=== PATIENT | female | born 1945 | race Caucasian/White ===

== ENCOUNTER 2021-05-03 14:42 | Outpatient (CLI) | payer MEDICARE ==
[2021-05-03 15:45] LABS: #Basophils 0.1 thou/uL (0.0-0.2); #Eosinphils 0.2 thou/uL (0.0-0.7); #Lymphocytes 2.1 thou/uL (1.20-3.40); #Monocytes 0.7 thou/uL (0.11-0.59); #Neutrophils 7.4 thou/uL (1.40-6.50); %Basophils 0.5 % (0.0-1.0); %Eosinophils 2.3 % (0.0-10.0); %Lymphocytes 19.6 % (21.0-51.0); %Monocytes 6.8 % (0.0-10.0); %Neutrophils 70.8 % (42.0-75.0); Hemoglobin 12.7 g/dL (12.0-16.0); Mean Corpuscular HGB CONC 31.6 g/dL (32.0-36.0); Mean Corpuscular Hemoglobin 27.1 pg (27.0-31.0); Mean Corpuscular Volume 85.9 fL (78.0-98.0); Mean Platelet Volume 10.1 fL (7.4-10.4); Platelet Count 233 thou/uL (130-400); RBC Distribution Width 13.4 % (11.5-14.5); Red Blood Cell (RBC) Count 4.67 mill/uL (4.20-5.40); White Blood Cell (WBC) Count 10.5 thou/uL (4.8-10.8)
[2021-05-03 16:57] LABS: ALT (SGPT) 18 U/L (8-55); AST (SGOT) 20 U/L (5-34); Albumin 3.8 g/dL (3.4-4.8); Alkaline Phosphatase 59 U/L (40-110); Anion Gap 17 mmol/L (10-20); BUN (Urea Nitrogen) 17 mg/dL (9.8-20.1); Bilirubin, Total 0.2 mg/dL (0.2-1.2); CRP (Inflammatory) 0.84 mg/dL (= or < 0.5); Calc. Creatinine Clearance 0 mL/min (70-130); Calcium 9.4 mg/dL (7.8-10.44); Carbon Dioxide 27 mmol/L (23-31); Chloride 100 mmol/L (98-107); Globulin 2.5 g/dL (2.4-3.5); Glucose 135 mg/dL (83-110); Potassium 4.3 mmol/L (3.5-5.1); Protein, Total 6.3 g/dL (5.8-8.1); Sodium 140 mmol/L (136-145)
== END 2021-05-03 14:43 | disposition home or self-care (01) ==
LOC: MADLABSP 14:42
PROVIDERS: ATTEND Family Medicine
DX: I10 Essential (primary) hypertension (principal)
CPT/HCPCS: 80053; 85025; 85652; 86140

== ENCOUNTER 2021-05-11 03:50 | Outpatient (CLI) | payer MEDICARE ==
[2021-05-11 07:44] LABS: #Basophils 0.1 thou/uL (0.0-0.2); #Eosinphils 0.3 thou/uL (0.0-0.7); #Lymphocytes 1.8 thou/uL (1.20-3.40); #Monocytes 0.4 thou/uL (0.11-0.59); #Neutrophils 8.5 thou/uL (1.40-6.50); %Basophils 0.7 % (0.0-1.0); %Eosinophils 2.4 % (0.0-10.0); %Lymphocytes 15.9 % (21.0-51.0); %Monocytes 3.8 % (0.0-10.0); %Neutrophils 77.1 % (42.0-75.0); Mean Corpuscular HGB CONC 31.1 g/dL (32.0-36.0); Mean Corpuscular Hemoglobin 26.7 pg (27.0-31.0); Mean Platelet Volume 10.9 fL (7.4-10.4); Platelet Count 233 thou/uL (130-400); RBC Distribution Width 13.2 % (11.5-14.5); Red Blood Cell (RBC) Count 4.87 mill/uL (4.20-5.40)
[2021-05-11 08:03] LABS: Anion Gap 21 mmol/L (10-20); BUN (Urea Nitrogen) 17 mg/dL (9.8-20.1); Calc. Creatinine Clearance 0 mL/min (70-130); Carbon Dioxide 22 mmol/L (23-31); Chloride 99 mmol/L (98-107); Potassium 5.2 mmol/L (3.5-5.1); Sodium 137 mmol/L (136-145)
[2021-05-11 08:04] LABS: ALT (SGPT) 18 U/L (8-55); AST (SGOT) 19 U/L (5-34); Albumin 3.9 g/dL (3.4-4.8); Alkaline Phosphatase 77 U/L (40-110); Bilirubin, Total 0.4 mg/dL (0.2-1.2); Calcium 9.1 mg/dL (7.8-10.44); Globulin 2.7 g/dL (2.4-3.5); Glucose 230 mg/dL (83-110); Protein, Total 6.6 g/dL (5.8-8.1)
== END 2021-05-11 03:51 | disposition home or self-care (01) ==
LOC: MADERS 03:50
PROVIDERS: ATTEND Family Medicine
DX: T81.32XD Disruption of internal operation (surgical) wound, not elsewhere classified, subsequent encounter (principal); T81.49XD Infection following a procedure, other surgical site, subsequent encounter; C51.9 Malignant neoplasm of vulva, unspecified
CPT/HCPCS: 80053; 85025; 85652; 86140

== ENCOUNTER 2021-05-19 15:20 | Outpatient (CLI) | payer MEDICARE ==
[2021-05-19 15:55] LABS: #Eosinphils 0.2 thou/uL (0.0-0.7); #Lymphocytes 1.6 thou/uL (1.20-3.40); #Monocytes 0.4 thou/uL (0.11-0.59); #Neutrophils 8.4 thou/uL (1.40-6.50); %Basophils 0.3 % (0.0-1.0); %Lymphocytes 15.5 % (21.0-51.0); %Monocytes 3.3 % (0.0-10.0); %Neutrophils 78.9 % (42.0-75.0); Hemoglobin 13.2 g/dL (12.0-16.0); Mean Corpuscular HGB CONC 32.1 g/dL (32.0-36.0); Mean Corpuscular Hemoglobin 27.1 pg (27.0-31.0); Mean Corpuscular Volume 84.4 fL (78.0-98.0); Mean Platelet Volume 10.1 fL (7.4-10.4); Platelet Count 261 thou/uL (130-400); RBC Distribution Width 12.8 % (11.5-14.5); Red Blood Cell (RBC) Count 4.85 mill/uL (4.20-5.40); White Blood Cell (WBC) Count 10.6 thou/uL (4.8-10.8)
[2021-05-19 16:06] LABS: ALT (SGPT) 19 U/L (8-55); AST (SGOT) 19 U/L (5-34); Albumin 3.9 g/dL (3.4-4.8); Alkaline Phosphatase 79 U/L (40-110); Anion Gap 20 mmol/L (10-20); BUN (Urea Nitrogen) 18 mg/dL (9.8-20.1); Bilirubin, Total 0.4 mg/dL (0.2-1.2); CRP (Inflammatory) 0.87 mg/dL (= or < 0.5); Calc. Creatinine Clearance 0 mL/min (70-130); Calcium 8.9 mg/dL (7.8-10.44); Carbon Dioxide 22 mmol/L (23-31); Chloride 101 mmol/L (98-107); Globulin 2.7 g/dL (2.4-3.5); Glucose 184 mg/dL (83-110); Potassium 4.8 mmol/L (3.5-5.1); Protein, Total 6.6 g/dL (5.8-8.1); Sodium 138 mmol/L (136-145)
[2021-05-19 22:47] LABS: Follow-up Chemistry Comp? YES; Follow-up Result - Chemistry REPORT FAXED
== END 2021-05-19 15:21 | disposition home or self-care (01) ==
LOC: MADLAB 15:20
PROVIDERS: ATTEND Internal Medicine Infectious Disease
DX: T81.49XD Infection following a procedure, other surgical site, subsequent encounter (principal)
CPT/HCPCS: 80053; 85025; 85652; 86140

== ENCOUNTER 2021-10-01 16:16 | Outpatient (CLI) | payer MEDICARE | END 2021-10-01 16:17 | disposition home or self-care (01) | LOC: MADRAD 16:16 | PROVIDERS: ATTEND Family Medicine | DX: J20.9 Acute bronchitis, unspecified (principal) | CPT/HCPCS: 71046 ==

== ENCOUNTER 2022-06-23 08:51 | Outpatient (CLI) | payer MEDICARE ==
[2022-06-23 09:16] LABS: Bilirubin Negative (Negative); Blood, Urine Negative (Negative); Clarity Clear (Clear); Glucose, Urine (Dipstick) Negative (Negative); Ketone, Urine Negative (Negative); Leukocyte Negative (Negative); Nitrite Negative (Negative); Protein, Urine (Dipstick) Negative (Neg-Trace); Specific Gravity, Urine 1.015 (1.005-1.030); Urobilinogen 0.2 mg/dL (Less than 2)
[2022-06-23 09:24] LABS: ALT (SGPT) 13 U/L (8-55); AST (SGOT) 13 U/L (5-34); Albumin 3.8 g/dL (3.4-4.8); Alkaline Phosphatase 66 U/L (40-110); Anion Gap 16 mmol/L (10-20); BUN (Urea Nitrogen) 14 mg/dL (9.8-20.1); Bilirubin, Total 0.8 mg/dL (0.2-1.2); Calc. Creatinine Clearance 0 mL/min (70-130); Calcium 9.2 mg/dL (7.8-10.44); Carbon Dioxide 27 mmol/L (23-31); Cardiac Risk 3.6 (Less than 4.5); Chloride 101 mmol/L (98-107); Cholesterol 148 mg/dl (< 200 Desired); Estimated GFR 69; Globulin 2.8 g/dL (2.4-3.5); Glucose 201 mg/dL (83-110); HDL Cholesterol 41 mg/dL (>60 Neg Risk); LDL Cholesterol, Calculated 76 mg/dL; Potassium 3.8 mmol/L (3.5-5.1); Protein, Total 6.6 g/dL (5.8-8.1); Sodium 140 mmol/L (136-145); Triglycerides 153 mg/dL (Less than 150)
[2022-06-23 09:52] LABS: Bacteria/HPF Rare-Few HPF (None Seen); RBC/HPF 0-3 HPF (0-3); Squamous Epithelial 0-3 HPF (0-3); Urine Culture Reflex No No; WBC/HPF 0-3 HPF (0-3)
[2022-06-23 16:29] LABS: Hemoglobin A1c 7.6 % (4.0-6.0)
== END 2022-06-23 08:52 | disposition home or self-care (01) ==
LOC: MADLAB 08:51
PROVIDERS: ATTEND Urology
DX: E11.29 Type 2 diabetes mellitus with other diabetic kidney complication (principal); E78.2 Mixed hyperlipidemia; N39.3 Stress incontinence (female) (male); R31.29 Other microscopic hematuria
CPT/HCPCS: 80053; 80061; 81001; 83036

== ENCOUNTER 2022-09-25 02:39 | Emergency (ER) | payer MEDICARE ==
[2022-09-25] MEDS ORDERED: predniSONE 20 MG TAB ONE (03:31)
== END 2022-09-25 03:38 | disposition home or self-care (01) ==
LOC: MADERS 02:39
DX: R21 Rash and other nonspecific skin eruption (principal); B34.9 Viral infection, unspecified; I10 Essential (primary) hypertension; E11.9 Type 2 diabetes mellitus without complications
CPT/HCPCS: 99283; J7512